=== PATIENT | male | born 2005 | race Caucasian/White ===

== ENCOUNTER 2024-01-25 21:27 | Emergency (ER) | payer BC, SELFPAY ==
[2024-01-25 21:28] VITALS: BP 140/74
[2024-01-25 22:19] VITALS: BMI 34.8
--- NOTE | 2024-01-25 22:21 | ED.GENMED ---
History of Present Illness
General
Chief Complaint: Musculo-Skeletal Complaint
Source: patient
Exam Limitations: none
Time Seen by Provider: 01/25/24 22:05
History of Present Illness
History of Present Illness:
See MDM
Past History
Past History
ED Past Medical History: None
ED Past Surgical History: None
Social History
Tobacco: Non-smoker
Alcohol: None
Phy Exam
Physical Exam
Physical Exam:
See MDM
Course
Orders/Labs/Results
Orders:
Orders
01/25/24 22:19
Ketorolac [Toradol] 30 mg IM NOW STA
Lumbar Spine Complete, 4 View [CR Lumbar Spine Comp Min 4 Vw*] Urgent
Comment:
Reason For Exam: recent fall, low back pain
Pelvis, 1 or 2 Views CR [CR Pelvis - 1 Or 2 Views ] Urgent
Comment:
Reason For Exam: recent fall, low back pain
01/25/24 22:27
Lidocaine [Lidocaine 4% Patch] 1 patch TOPICAL DAILY ONE
Apply Lidocaine patch(s) to:: distal left hamstring
01/26/24 08:00
Lidocaine [Lidocaine 4% Patch] 1 patch TOPICAL DAILY
Apply Lidocaine patch(s) to:: left posterior thigh
Vital Signs
Initial and Last Documented VS:
Initial Vital Signs
Temp Pulse Resp BP Pulse Ox
97.8 F 84 22 140/74 100
01/25/24 21:28 01/25/24 21:28 01/25/24 21:28 01/25/24 21:28 01/25/24 21:28
Last Documented Vital Signs
Temp Pulse Resp BP Pulse Ox
97.8 F 84 22 140/74 100
01/25/24 21:28 01/25/24 21:28 01/25/24 21:28 01/25/24 21:28 10/19/24 21:28
MDM/Problems Addressed
Differential Diagnosis Includes:
HPI and MDM Narrative:
18-year-old male presenting with posterior left thigh pain. This started ever since he had a slip and fall a few weeks ago. Patient states the pain is excruciating when he bends forward. He is able to walk without issues. He has been playing
baseball without issues but symptoms are worse when he sits for prolonged period of time or bends over or leans forward.
On exam, patient has point tenderness to the distal aspect of his hamstring. Will obtain x-rays of his lumbosacral area given the recent fall but discussed likely hamstring tear and return precautions. Will start lidocaine patch
.
Physical exam
General: Well appearing and non-toxic
HEENT: protecting airway
Neck: appears supple
CV: No evidence of cyanosis
Resp: No accessory muscle use
Abd: Non-distended
Extremities: Point tenderness to left distal hamstring. Distal extremity neurovascularly intact. No sensory deficits
Neuro: alert
Psych: Normal affect
Skin: Intact
Problems Addressed including Acute and Chronic Conditions affecting care:
1. Hamstring injury
Acuity: acute
Prognosis: stable
Details: Will start lidocaine patch. Given recent trauma, will obtain pelvic and lumbar x-ray
Updates
X-ray is negative for acute injury. Discussed follow-up with orthopedics. Father mother states that he has been evaluated but can orthopedics before. Discussed having evaluation with the orthopedist
I informed the patient that he should rest his leg rather than play baseball.
Differential Diagnosis (but not limited to): Sciatica, hamstring injury
Testing considered: Ultrasound DVT rule out but there is no tenderness to deep venous palpation
Drug therapy (if applicable): OTC meds, please see d/c instruction regarding Rx drugs
Amount and/or Complexity of Data Reviewed
Clinical info obtained from: Patient
External data reviewed: N/A
Labs I independently reviewed (but not limited to): N/A
Radiology: X-ray independently reviewed: Pelvic and lumbar x-ray negative for fracture
Pulse Ox: not hypoxic
EKG independently reviewed: N/A
Seat Cover Cutter: N/A
Critical Care: N/A
Risk of Complication:
Social Determinants of health: Good social support
Discussed with other providers: N/A
Escalation of Care includes Admit/Obs: After being observed in the Emergency Department, pt stable for discharge.
Occasional wrong word or 'sound a like' substitutions may have occurred due to the inherent limitations of voice recognition software. Read the chart carefully and recognize, using context, where substitutions have occurred.
*Critical Care Note
Total Time (30-74mins, 75-104mins- exclusive of procedures): Not Applicable
ED Attending Note
-
Portions of this chart may have been created with voice recognition software.� Occasional wrong word or��sound alike� substitutions may have occurred due to the inherent limitations of voice recognition software.
Discharge Plan
Departure
Patient Disposition: Home (Routine Discharge)
Date of Disposition: 01/25/24
Time of Disposition: 23:12
Patient with high blood pressure during this ER visit?: No
Discharge Problem:
Left hamstring injury
Prescriptions:
New
lidocaine 4 % adhesive patch,medicated
1 patch topical DAILY PRN (Reason: Pain) Qty: 10 0RF
Referrals:
Marguerite Kearney CRNP [Family Provider] -
Activity Restrictions/Additional Instructions:
Please return for any worsening symptoms.
You may return at any time if you have further concerns.
Please follow up with the orthopedist if symptoms persist.
Thank you for choosing [facility]
Interventions
Interventions:
*Risk Screen - Suicide Last Done: 01/25/24 21:28
*General Assessment Last Done: 01/25/24 22:20
*Neglect/Abuse Screening Last Done: 01/25/24 21:28
ED- Fall Risk Assessment Last Done: 01/25/24 22:21
*ED COVID-19 Vaccine History Last Done: 01/25/24 22:20
ED-Musculoskeletal Assessment Last Done: 01/25/24 22:23
Discharge Date and Time
Print Language: BULGARIAN
[2024-01-25] MEDS: TORADOL 30 MG IM (22:41)
[2024-01-25] MEDS: LIDOCAINE 4% PATCH 1 PATCH TOPICAL (22:42)
== END 2024-01-25 23:22 | disposition home or self-care (01) ==
LOC: EMR 21:27
PROVIDERS: EMERGENCY PHYSICIAN Student in an Organized Health Care Education/Training Program; FAMILY PHYSICIAN Nurse Practitioner School
DX: S76.302A Unspecified injury of muscle, fascia and tendon of the posterior muscle group at thigh level, left thigh, initial encounter (principal); W01.0XXA Fall on same level from slipping, tripping and stumbling without subsequent striking against object, initial encounter
CPT/HCPCS: 99284; 96372; 72110; 72170

== ENCOUNTER 2024-10-21 17:58 | Emergency (ER) | payer SELFPAY ==
[2024-10-21 17:59] VITALS: BP 140/91
[2024-10-21 20:21] VITALS: BP 120/61
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
== END 2024-10-21 22:22 | disposition home or self-care (01) ==
LOC: EMR 17:58
PROVIDERS: EMERGENCY PHYSICIAN Emergency Medicine
DX: H93.12 Tinnitus, left ear (principal); V43.52XA Car driver injured in collision with other type car in traffic accident, initial encounter; W22.11XA Striking against or struck by driver side automobile airbag, initial encounter; Y92.410 Unspecified street and highway as the place of occurrence of the external cause; J45.909 Unspecified asthma, uncomplicated
CPT/HCPCS: 99282